=== PATIENT | male | born 1995 ===

== ENCOUNTER 2017-02-25 10:39 | Outpatient (CLI) | payer BC ==
[2017-02-27 00:44] LABS: Chlamydia by PCR Not Detected (NotDetected); GC by PCR Not Detected (NotDetected)
== END 2017-02-25 10:40 | disposition home or self-care (01) ==
LOC: NAVSJIPCSP 10:39
PROVIDERS: ATTEND Internal Medicine
DX: R30.0 Dysuria (principal); J02.9 Acute pharyngitis, unspecified
CPT/HCPCS: 87491; 87591